=== PATIENT | female | born 1940 | race Caucasian/White ===

== ENCOUNTER 2017-09-27 06:55 | Day surgery (SDC) | payer OTHER, BC ==
[2017-09-20 10:33] VITALS: BMI 43.9
--- NOTE | 2017-09-21 09:56 | HP ---
Admitting History and Physical - Primary Care Physician PCP: Al Zuniga - Admission Chief Complaint: right breast cancer History of Present Illness: Patient is a 76 yo female who was noted to have a suspicious lesion at the right 2-3 oclock position 7 cm FN. Right breast US guided core bx was pos for invasive ductal ca ER/WI positive. Patient is now presenting for right breast WE with NL, SNBx, poss ANDx with lympho and intraop radiation. History Source: Patient Limitations to Obtaining History: No Limitations - Past Medical History Cardiovascular: Yes: AFIB, Hyperlipdemia, Other (left BBB) Psych: Yes: Depression Endocrine: Yes: Hypothyroidism - Past Surgical History Past Surgical History: Yes: Hysterectomy (PATRICIA/BSO at 46 yrs old sec to benign dz ) - Smoking History Smoking history: Never smoked - Alcohol/Substance Use Hx Alcohol Use: No Home Medications - Allergies Allergies/Adverse Reactions: Allergies Allergy/AdvReac Type Severity Reaction Status Date / Time Penicillins Allergy Rash Verified 09/20/17 10:24 - Home Medications Home Medications: Ambulatory Orders Aspirin [Aspirin EC] 81 mg PO DAILY 09/20/17 Docusate Sodium [Stool Softener] 250 mg PO Q48H 09/20/17 Levothyroxine Sodium [Levoxyl] 88 mcg PO DAILY 09/20/17 Paroxetine HCl [Paxil] 10 mg PO DAILY 09/20/17 Rosuvastatin Calcium [Crestor] 5 mg PO DAILY 09/20/17 Family Disease History - Family Disease History Family Disease History: CA: Mother (colon at 73) Review of Systems - Review of Systems Constitutional: reports: No Symptoms Cardiovascular: reports: No Symptoms Genitourinary: reports: Incontinence (urinary) Physical Examination Constitutional: Yes: Well Nourished Cardiovascular: Yes: Regular Rate and Rhythm Breast(s): Yes: Other (Symmetrical without skin changes or nipple discharge. Breasts are diffusely nodular without suspicious palpable masses or adenopathy noted bilaterally.) Problem List - Problems (1) Breast cancer, right Code(s): C50.911 - MALIGNANT NEOPLASM OF UNSP SITE OF RIGHT FEMALE BREAST Qualifiers: Breast location: upper inner quadrant of breast Patient sex: female Assessment/Plan right breast WE with NL, snbx, poss andx with intraop radiation
[2017-09-27] MEDS ORDERED: ISOSULFAN BLUE 10 MG/ML VIAL SQ ONE (10:29)
[2017-09-27] MEDS ORDERED: LIDOCAINE HCL 1%, 10 MG/ML (20ML VIAL) ONE (10:30)
[2017-09-27] MEDS ORDERED: BUPIVACAINE HCL/PF 2.5 MG/ML - 30 ML VIAL IJ ONE (10:30)
[2017-09-27] MEDS ORDERED: fentaNYL CITRATE 250 MCG/5 ML VIAL ONE (11:47)
[2017-09-27] MEDS ORDERED: PROPOFOL 20 ML ONE ×2 (11:47)
[2017-09-27] MEDS ORDERED: ROCURONIUM BROMIDE 50 MG/5 ML VIAL ONE (11:48)
[2017-09-27] MEDS ORDERED: LIDOCAINE HCL/PF 2% SDV 5ML VIAL ONE (12:48)
[2017-09-27] MEDS ORDERED: DEXAMETHASONE SOD PHOSPHATE 4 MG/1 ML VIAL ONE (12:48)
[2017-09-27] MEDS ORDERED: ONDANSETRON 4 MG/2 ML VIAL ONE (12:48)
[2017-09-27] MEDS ORDERED: LIDOCAINE HCL 2% JELLY (5 ML/TUBE) ONE (12:48)
[2017-09-27] MEDS ORDERED: CLINDAMYCIN PHOSPHATE 600 MG/4 ML VIAL ONE (12:48)
[2017-09-27] MEDS ORDERED: GLYCOPYRROLATE 0.2 MG/1 ML VIAL ONE (13:44)
[2017-09-27] MEDS ORDERED: NEOSTIGMINE METHYLSULFATE 0.5 MG/ML - 10 ML MDV ONE (13:45)
[2017-09-27] MEDS ORDERED: BUPIVACAINE HCL/PF 0.25% (2.5MG/ML) 10 ML VIAL IJ ONE ×3 (13:56→14:30)
[2017-09-27] MEDS ORDERED: LIDOCAINE HCL 1%, 10 MG/ML (20ML VIAL) INF ONE ×3 (13:57→14:30)
[2017-09-27] MEDS ORDERED: ePHEDrine SULFATE 50 MG/1 ML AMPULE ONE (14:06)
[2017-09-27] MEDS ORDERED: ESMOLOL HCL 100,000 MCG/10 ML VIAL ONE (14:31)
[2017-09-27] MEDS ORDERED: KETOROLAC TROMETHAMINE 30 MG/1 ML VIAL IVPUSH PRN (14:47)
[2017-09-27] MEDS ORDERED: ONDANSETRON 4 MG/2 ML VIAL IVPUSH PRN (14:47)
[2017-09-27] MEDS ORDERED: oxyCODONE HCL 5 MG TABLET PO PRN ×2 (14:49)
[2017-09-27] MEDS ORDERED: PROMETHAZINE HCL 25 MG/1 ML VIAL IVPUSH PRN (14:49)
[2017-09-27] MEDS ORDERED: LACTATED RINGERS SOLUTION 1,000 ML IV SCH (15:00)
[2017-09-27] MEDS ORDERED: DEXTROSE 5%-0.45% SALINE 1,000 ML IV SCH (15:00)
[2017-09-27 16:23] VITALS: BP 113/64; PULSE 73; TEMP 97.7
--- NOTE | 2017-09-27 18:33 | OP ---
DATE OF OPERATION: 09/27/2017 PREOPERATIVE DIAGNOSIS: Right breast cancer. POSTOPERATIVE DIAGNOSIS: Right breast cancer. PROCEDURE: Right mammographically localized wide excision with sentinel node biopsy and intraoperative radiation as well as complex tissue transfer. ANESTHESIA: General, intubated. ATTENDING SURGEON: Jovi Leiva MD CURING OVEN ATTENDANT: SANJU Durbin ESTIMATED BLOOD LOSS: Minimal. COMPLICATIONS: None. OPERATIVE REPORT: Patient was made aware of the risks and benefits of the procedure and consented. Preoperatively, the patient went to the radiology suite, where a needle and wire were placed next to the indexed lesion, followed by nuclear medicine, where technetium tracer was injected into the peritumoral tissue and skin. The patient was then placed in a supine position on the operating room table, and after general anesthesia was induced, the patient was intubated. Then, 2.5 mL of 1% isosulfan blue were locally infiltrated into the peritumoral tissues. The operative site was prepped and draped in the usual sterile fashion, waiting approximately 10 minutes, with gentle manual compression. A curvilinear incision was made in the right axilla. Using blunt and sharp dissection, tissues were dissected down to reveal the axilla. There was no obvious blue dye and minimal radioactive uptake using the NeoProbe. A cluster of 3 lymph nodes were identified and excised and submitted for permanent sectioning. Palpation of the rest of the axilla revealed no suspicious lymph nodes, hot areas, or blue dye. The wound was copiously irrigated with normal saline. Hemostasis maintained by electrocautery. The wound was then closed with deep 3-0 Vicryl, followed by running subcuticular 4-0 Monocryl. The right breast was then approached. A radial elliptical incision was made over the breast cancer site. Since it was superficial, the skin was taken. Using electrocautery, tissues were dissected down to the wire and needle. The needle was withdrawn through the puncture site and the wire through the tissues. The needle and wire were then sharply excised and submitted with a short suture superior, long suture lateral. Specimen radiograph confirmed the presence of the indexed lesion. Additional segments were taken superior, medial, lateral, inferior, and deep. No superficial margin was taken since we took skin. The wound was copiously irrigated with normal saline. Hemostasis maintained by electrocautery. A 4.0 cm probe was then placed into the cavity and the tissue was apposed to it using a pursestring suture of number 2 Vicryl. Intraoperative ultrasound showed that the distances from the skin to the probe were all greater than 10 mm. Saline-soaked gauze was used to protect the skin from the probe. Radiopaque material was placed over the probe for the patient's and the staff's protection. The patient then underwent 28 minutes of intraoperative radiation, after which the gauze and suture were then removed. The probe was taken out and the wound, again, was copiously irrigated with normal saline. Using electrocautery, tissue flaps were made by taking the breast tissue off the pectoralis muscle and rotating it into the defect. This was closed with multiple layers of [id number] suture of 2-0 Vicryl. Skin was then closed with deep 3-0 Vicryl, followed by running subcuticular 4-0 Monocryl. Dermabond and sterile dressings were then applied and the patient, having tolerated the procedure well, was transferred to the recovery room in excellent condition. JOVI LEIVA M.D. [id number]
--- NOTE | 2017-09-27 20:38 | OP ---
DATE OF OPERATION: 09/27/2017 PREOPERATIVE DIAGNOSIS: Right breast cancer. POSTOPERATIVE DIAGNOSIS: Right breast cancer. PROCEDURE: Post-lumpectomy intraoperative radiation therapy for right breast cancer. ATTENDING SURGEON: Lu Leiva MD LEGAL TRANSCRIBER/RADIATION ONCOLOGIST: Benoit Denton MD ANESTHESIA: General. COMPLICATIONS: None. INDICATIONS: The patient is a 76-year-old woman with a clinical stage IA invasive ductal carcinoma of the right breast. She has elected breast conservation therapy with lumpectomy and intraoperative radiation therapy on the [facility] trial. PROCEDURE: Dr. Leiva performed right lumpectomy and sentinel lymph node biopsy, which he has dictated. After excision of additional margins, the lumpectomy cavity was prepared, incised with a 4.0 cm diameter spherical applicator that was then placed into the operative cavity and the surrounding breast tissues were then cinched around the applicator using a Vicryl pursestring suture. I performed a clinical and ultrasound simulation to ensure that the applicator was located within the operative bed with close apposition of the surrounding breast tissue to the surface of the applicator. Saline-filled gauze was placed between the skin and breast tissue to maximize the separation. Ultrasound measurements confirmed that there was at least a separation of 1.5 cm at the 6 o'clock aspect of the applicator. Shielding material was placed over the breast to reduce scatter radiation. The patient received a total dose of 20 Gy prescribed to 0 mm from the applicator surface with 50 kV x-rays using the Intrabeam. Prior to the treatment, the system was double checked, with appropriate quality control industrial engineer measures by the physicist. The total time required for the treatment was 28 minutes 45 seconds at a dose rate of 0.703 Gy per minute. When the treatment was completed, survey of the patient and room confirmed that the Intrabeam source was off. There were no complications. There were no interruptions. Dr. Leiva removed the radiation applicator from the patient and completed the surgery. The patient will be transferred to the recovery room following the surgery. BENOIT DENTON M.D. [id number] cc: Lu Leiva MD [facility]
--- NOTE | 2017-09-29 14:31 | PATH ---
Surgical Pathology Report Patient Name: ISSAC QUINONES [facility]. Rec. #: [id number] /Age/Gender: 1940 (Age: 76) / F Account: [id number] Location: [facility] Taken: 09/27/2017 Received: 09/27/2017 Reported: 09/29/2017 Physicians: Paulino Allison M.D. Specimen(s) Received A: RIGHT BREAST WIDE EXCISION B: RIGHT BREAST DEEP MARGIN C: RIGHT BREAST SUPERIOR MARGIN D: RIGHT BREAST MEDIAL MARGIN E: RIGHT BREAST INFERIOR MARGIN F: RIGHT BREAST LATERAL MARGIN G: RIGHT AXILLARY NODES Clinical History Invasive Final Diagnosis A. BREAST, RIGHT, WIDE EXCISION: INVASIVE DUCTAL CARCINOMA, WELL DIFFERENTIATED (TUBULE SCORE: 2/3, NUCLEAR GRADE: 2/3, MITOTIC SCORE: 1/3; TOTAL ANSLEY SCORE: 5/9). INVASIVE CARCINOMA MEASURES 1.5 x 1.4 CM IN GREATEST DIMENSION, MICROSCOPICALLY. FOCAL DUCTAL CARCINOMA IN SITU (DCIS), CRIBRIFORM TYPE, INTERMEDIATE GRADE. NO LYMPHOVASCULAR OR PERINEURAL INVASION IDENTIFIED. SURGICAL MARGINS ARE UNINVOLVED BY CARCINOMA; CARCINOMA IS <1 MM FROM THE CLOSEST SUPERIOR MARGIN. SEE SPECIMEN B-F FOR FINAL MARGINS. SKIN IS UNINVOLVED BY CARCINOMA. PRIOR BIOPSY SITE CHANGES ARE PRESENT. PATHOLOGIC STAGE (pTNM): pT1c pN0. SEE ALSO INVASIVE CARCINOMA CASE SUMMARY BELOW. B. BREAST, RIGHT, DEEP MARGIN, EXCISION: BENIGN PREDOMINANTLY FATTY BREAST TISSUE. C. BREAST, RIGHT, SUPERIOR MARGIN, EXCISION: BENIGN BREAST TISSUE. D. BREAST, RIGHT, MEDIAL MARGIN, EXCISION: BENIGN BREAST TISSUE. E. BREAST, RIGHT, INFERIOR MARGIN, EXCISION: BENIGN BREAST TISSUE. F. BREAST, RIGHT, LATERAL MARGIN, EXCISION: BENIGN BREAST TISSUE WITH STROMAL FIBROSIS AND FOCAL USUAL DUCTAL HYPERPLASIA. G. AXILLA, LYMPH NODES, RIGHT, EXCISION: TWO BENIGN LYMPH NODES (0/2). Comment: Immunohistochemical stains performed and interpreted at [facility] show E-cadherin is positive, supporting ductal phenotype. Breast prognostic markers are pending and will be reported separately. Comments Breast Invasive Carcinoma: Surgical Pathology Case Summary (Based on AJCC TNM 8 th edition) Procedure _X_ Excision (less than total mastectomy) Specimen Laterality _X_ Right Tumor Size _X__ Greatest dimension of largest invasive focus >1 mm (specify exact measurement) (millimeters): 1.5 cm Histologic Type _X_ Invasive carcinoma of no special type (ductal, not otherwise specified) Histologic Grade ([place] Histologic Score) Glandular (Acinar)/Tubular Differentiation _X__ Score 2 (10% to 75% of tumor area forming glandular/tubular structures) Nuclear Pleomorphism _X__ Score 2 Mitotic Rate _X__ Score 1 Overall Grade _X_ Grade 1 (scores of 5) Tumor Focality _X_ Single focus of invasive carcinoma Ductal Carcinoma In Situ (DCIS) _X__ DCIS is present in specimen Tumor Extension (required only if the structures are present and involved) Skin _X__ Not involved with Margins Invasive Carcinoma Margins _X__ Uninvolved by invasive carcinoma Distance from closest margin (millimeters): <1 mm (wide excision) Closest margin: Superior Margin (wide excision) Separate margins (B-F) are negative. DCIS Margins _X__ Uninvolved by DCIS Distance from closest margin (millimeters): 2 mm Closest margin: Superior/medial margin Regional Lymph Nodes Number of Lymph Nodes with Macrometastases (>2 mm): 0 Number of Lymph Nodes with Micrometastases (>0.2 mm to 2 mm and/or >200 cells): 0 Number of Lymph Nodes with Isolated Tumor Cells (=0.2 mm and =200 cells): 0 Number of Lymph Nodes Examined: _2__ Number of Moca Nodes Examined : 0 Treatment Effect _X__ No known presurgical therapy Lymphovascular Invasion _X__ Not identified Pathologic Stage Classification (pTNM, AJCC 8th Edition) Primary Tumor (Invasive Carcinoma) (pT) _X__ pT1c: Tumor >10 mm but =20 mm in greatest dimension Regional Lymph Nodes (pN) Category (pN) _X_ pN0: No regional lymph node metastasis identified or ITCs only Electronically Signed Sonia Medellin M.D. Addendum Reported: 10/03/2017 Addendum Diagnosis Results of Estrogen Receptor (ER) and Progesterone Receptor (MN) studies performed on block "A2" at [facility] are as follows: ER (clone [id number] mouse monoclonal antibody by [employer]): 99% nuclear staining with moderate to strong intensity (Positive). MN (clone16 mouse monoclonal antibody by [employer]): 70% nuclear staining with weak to moderate intensity (Positive). Results of Her2 (IHC) & Ki-67 studies performed on block "A2 " at [place], [place] ([id number]) are as follows: Her2 IHC (EP3 from [employer], formerly known as [id number], using [employer] Polymer Refine detection kit): 1+ (Negative) Ki-67: ~10% (Low proliferative index) Positive and negative controls (internal if applicable) show appropriate results. Formalin fixation and cold ischemic times are within current ASCO/CAP recommendations for ER, MN and Her2 testing. Sonia Medellin M.D. Gross Description A. Received in formalin, labeled "right breast wide excision," is a 4.2 x 2.4 x 2.1 cm. cedillo-yellow, irregular, portion of fibroadipose tissue with a needle localization wire present. There is a short suture marking the superior aspect and a long suture marking the lateral aspect, per the surgeon. The anterior surface displays a 2.5 x 0.8 cm cedillo, elliptical, unremarkable portion of skin. The specimen is inked as follows: superior blue; inferior green; medial yellow; lateral red; deep black. The specimen is serially sectioned from anterior to deep. Sectioning reveals a 1.1 x 1.1 x 1.0 cm cedillo, indurated mass at 0.2 cm from the lateral and superior margins. The mass is 0.4 cm from the medial margin. [employer] sections are submitted in 6 cassettes as follows: 1-3-one fullface section of mass each (each with superior, medial and lateral margins); 4-inferior margin; 5-skin; 6-deep margin. Time to formalin fixation: 5 minutes Total formalin fixation time: Approximately 30 hours. B. Received in formalin labeled "right breast deep margin," is a 2.7 x 2.0 x 1.3 cm irregular portion of fibroadipose tissue with a clip marking the new margin, per the surgeon. The new margin is inked blue and the specimen is serially sectioned. The specimen is entirely submitted in 3 cassettes. C. Received in formalin labeled "right breast superior margin," is a 2.0 x 1.7 x 0.7 cm areolar portion of fibroadipose tissue with a clip marking the new margin, per the surgeon. The new margin is inked blue and the specimen is serially sectioned. The specimen is entirely submitted in 2 cassettes. D. Received in formalin labeled "right breast medial margin," is a 1.8 x 1.5 x 0.5 cm irregular portion of fibroadipose tissue with a clip marking the new margin, per the surgeon. The new margin is inked blue and the specimen is serially sectioned. The specimen is entirely submitted in 2 cassettes. E. Received in formalin labeled "right breast inferior margin," is a 3.0 x 1.4 x 0.4 cm irregular portion of fibroadipose tissue with a clip marking the new margin, per the surgeon. The new margin is inked blue and the specimen is serially sectioned. The specimen is entirely submitted in 3 cassettes. F. Received in formalin labeled "right breast lateral margin," is a 2.8 x 1.8 x 0.5 cm irregular portion of fibroadipose tissue with a clip marking the new margin, per the surgeon. The new margin is inked blue and the specimen is serially sectioned. The specimen is entirely submitted in 3 cassettes. G. Received in formalin labeled "right axillary nodes," are 4 cedillo, irregular lymph nodes ranging from 0.5 x 0.3 x 0.3 cm to 1.1 x 0.9 x 0.6 cm. The specimens are entirely submitted in 3 cassettes as follows: 1-two whole lymph nodes; 2-3-one whole bisected lymph node each. 09/28/2017 saudi09/28/2017
== END 2017-09-27 17:01 | disposition home or self-care (01) ==
LOC: FASU 06:55
PROVIDERS: ATTEND Surgery Surgical Oncology
PROC: 0HBT0ZZ Excision of Right Breast, Open Approach (ICD-10-PCS; principal; 2017-09-27 12:28)
PROC: DMY17ZZ Contact Radiation of Right Breast (ICD-10-PCS; 2017-09-27 12:28)
PROC: 0JX60ZC Transfer Chest Subcutaneous Tissue and Fascia with Skin, Subcutaneous Tissue and Fascia, Open Approach (ICD-10-PCS; 2017-09-27 12:28)
DX: C50.211 Malignant neoplasm of upper-inner quadrant of right female breast (principal); I48.91 Unspecified atrial fibrillation; E78.5 Hyperlipidemia, unspecified; I44.7 Left bundle-branch block, unspecified; F32.9 Major depressive disorder, single episode, unspecified; E03.9 Hypothyroidism, unspecified; Z90.710 Acquired absence of both cervix and uterus; Z17.0 Estrogen receptor positive status [ER+]
CPT/HCPCS: 19281; 76641-TC-50; 77290; 77300; 77316; 77332; 77370-TC; 77424; 78195-TC; 88307-TC; 88341-TC; 88342-TC; 94760; A9541; C9726